=== PATIENT | female | born 1980 | race Two or more races ===

== ENCOUNTER 2016-10-05 12:10 | Emergency (ER) | payer OTHER ==
[~2016-10-05] VITALS: Ht 172.7 cm; Wt 79.9 kg
[~2016-10-05 12:10] MED LIST: DEXA4TAB PO; FAMO-79 PO; HYDR4TAB16 PO; IBUP800T PO; IRON PO; LOPE2CAP PO; NONE PER PT; ONDA4TAB13 SL; OXYC-229 PO; OXYC-302 PO; PROC10TA78 PO; PROM25TA10 PO
[2016-10-05 12:11] VITALS: BP 125/88
[2016-10-05 14:35] LABS: HEMOGLOBIN 9.3 g/dL (11.7-16.4)
[2016-10-05 14:48] LABS: ASPARTATE AMINO TRANSFERASE 14 U/L (15-37); BLOOD UREA NITROGEN 11 mg/dL (7-18)
== END 2016-10-05 15:49 | disposition home or self-care (01) ==
LOC: ED 14:41
DX: G62.9 Polyneuropathy, unspecified (principal); N30.01 Acute cystitis with hematuria; M79.662 Pain in left lower leg
CPT/HCPCS: 36415; 76770; 80053; 81001; 85025; 85610; 85730; 87086

== ENCOUNTER → 2017-01-02 | Outpatient (CLI) | payer OTHER ==
[~2017-01-02] MED LIST changes: +OMNIPAQUE 350 MG/ML, 100ML BOTTLE ONE
== END | disposition home or self-care (01) ==
LOC: CFH 09:12
PROVIDERS: ATTEND Specialist
DX: N87.1 Moderate cervical dysplasia (principal); R91.1 Solitary pulmonary nodule; K80.20 Calculus of gallbladder without cholecystitis without obstruction; N13.30 Unspecified hydronephrosis
CPT/HCPCS: 74177; Q9967

== ENCOUNTER → 2017-01-31 | Outpatient (CLI) | payer OTHER ==
[~2017-01-31] MED LIST changes: +ALBUTEROL INHALER INH; +GABA300C10 PO; -HYDR4TAB16 PO; +HYDR4TAB48 PO; +NAPR220C2 PO; -OMNIPAQUE 350 MG/ML, 100ML BOTTLE ONE; +VITA1TAB19 PO
[2017-01-31 13:45] LABS: ASPARTATE AMINO TRANSFERASE 13 U/L (15-37); BLOOD UREA NITROGEN 17 mg/dL (7-18)
== END | disposition home or self-care (01) ==
LOC: STAR 12:44
PROVIDERS: ATTEND Specialist
DX: Z01.818 Encounter for other preprocedural examination (principal); R79.1 Abnormal coagulation profile
CPT/HCPCS: 36415; 80053; 84703; 85025; 85610; 85730

== ENCOUNTER → 2017-02-01 | Outpatient (CLI) | payer OTHER | END | disposition home or self-care (01) | LOC: PETCFH 08:30 | PROVIDERS: ATTEND Specialist | DX: C53.0 Malignant neoplasm of endocervix (principal); R91.8 Other nonspecific abnormal finding of lung field; E04.1 Nontoxic single thyroid nodule | CPT/HCPCS: 78815; A9552 ==

== ENCOUNTER 2017-02-04 09:32 | Day surgery (SDC) | payer OTHER ==
[~2017-02-04] VITALS: Ht 172.7 cm; Wt 83.0 kg
[~2017-02-04 09:32] MED LIST changes: +BUPIVACAINE/PF 0.25% ONE; +EPINEPHRINE 1 MG/ML, 1ML ONE
[2017-02-04] MEDS ORDERED: LACTATED RINGERS 1,000 ML IV SCH (10:05)
[2017-02-04 10:11] VITALS: BP 116/73
[2017-02-04 10:36] LABS: HCG UR OBC PASS
[2017-02-04] MEDS ORDERED: FENTANYL PF 250 MCG/5ML ONE (10:37)
[2017-02-04] MEDS ORDERED: MIDAZOLAM 1 MG/ML, 2ML ONE (10:37)
[2017-02-04] MEDS ORDERED: ACETAMINOPHEN 325 MG TABLET PO PRN ×2 (11:00→13:30)
[2017-02-04] MEDS ORDERED: OXYcodone 5 MG/5 ML ORAL.SOL UDC PO PRN ×2 (11:00→13:30)
[2017-02-04] MEDS ORDERED: HYDROmorphone 1 MG/ML, 1ML IV PRN ×2 (11:00→13:30)
[2017-02-04] MEDS ORDERED: MEPERIDINE/PF 25MG/0.5ML IVPush PRN ×2 (11:00→13:30)
[2017-02-04] MEDS ORDERED: FENTANYL PF 100 MCG/2ML IV PRN ×2 (11:00→13:30)
[2017-02-04] MEDS ORDERED: ONDANSETRON 2MG/ML, 2ML IVPush PRN ×2 (11:00→13:30)
[2017-02-04] MEDS ORDERED: MIDAZOLAM 1 MG/ML, 2ML IV PRN ×2 (11:00→13:30)
[2017-02-04] MEDS ORDERED: LABETALOL 5MG/ML, 20ML IV PRN ×2 (11:00→13:30)
[2017-02-04] MEDS ORDERED: PROMETHAZINE 25 MG/ML, 1ML IV PRN ×2 (11:00→13:30)
[2017-02-04] MEDS ORDERED: KETOROLAC 30 MG/1 ML ONE (12:40)
[2017-02-04] MEDS ORDERED: CEFAZOLIN 1,000 MG ONE (12:40)
[2017-02-04] MEDS ORDERED: ROCURONIUM 10 MG/ML ONE (12:40)
[2017-02-04] MEDS ORDERED: ONDANSETRON 2MG/ML, 2ML ONE (12:40)
[2017-02-04] MEDS ORDERED: DEXAMETHASONE 4 MG/ML, 1ML ONE (12:40)
[2017-02-04] MEDS ORDERED: PROPOFOL 10 MG/ML, 20ML ONE (12:40)
[2017-02-04] MEDS ORDERED: ALBUTEROL/IPRATROPIUM 2.5MG/0.5MG, 3 ML NPPB PRN (13:30)
== END 2017-02-04 15:35 ==
LOC: OUT 09:32
PROVIDERS: ATTEND Specialist
DX: C53.9 Malignant neoplasm of cervix uteri, unspecified (principal); J45.909 Unspecified asthma, uncomplicated
CPT/HCPCS: 36415; 52332; 57520; 74000; 76000; 81025; 86850; 86900; 87070; 87075; 87077; 87186; 87205; 88305; 88341; 88342; C2617; J0690; J1100; J1885; J2250; J2405; J2704; J3010; J7120; J0171; J3490; G0461